=== PATIENT | male | born 1985 | race Caucasian/White ===

== ENCOUNTER → 2017-08-26 11:53 | Outpatient (CLI) | payer OTHER, SELFPAY ==
--- NOTE | 2017-08-27 16:35 | PM.PFT.1 ---
Pulmonary Function Test Referral & Results Date Patient Seen: 08/26/17 Requesting provider: Joey Barth Results: The spirometry demonstrates an FVC of 5.95 L which is 110% of predicted. The FEV1 was measured at 3.68 L which is 83% of predicted. The FEV1/FVC ratio was 62 which is 73% of predicted. Following the administration of bronchodilator there was a 26% improvement in FEV1 and a 96% improvement in FEF 25-75%. Lung volumes show an SVC of 5.82 L which is 119% of predicted. The diffusing capacity was measured at 67.65 which is 167 of predicted. The maximum voluntary ventilation was slightly reduced. Interpretation: This study demonstrates moderate obstructive lung disease with evidence of significant benefit following bronchodilator. Given lack of other findings this is consistent with a diagnosis of asthma.
== END ==
PROVIDERS: Visit Provider Family Medicine
DX: J45.909 Unspecified asthma, uncomplicated (principal)
CPT/HCPCS: 94010; 94060; 94726; 94729

== ENCOUNTER → 2019-12-13 12:45 | Outpatient (CLI) | payer OTHER, SELFPAY ==
--- NOTE | 2019-12-13 | DI.MRI.S_ITS ---
PROCEDURE: MR STROKE Pre- and post-contrast brain MRI, non-contrast brain MR angiogram, pre- and postcontrast neck MR angiogram INDICATIONS: Headache TECHNIQUE: Brain: Noncontrast axial T1 spin echo, axial T2 fast spin echo, sagittal and axial FLAIR, coronal T2 fast spin echo, axial gradient echo, axial diffusion and ADC through the brain. After the administration of contrast, axial 3D VIBE of the cranial vasculature and brain. Brain MRA: Non-contrast 3-D time of flight MR angiogram, with multiple jbxexpf-nlhlzstgm-glctmlffxm (MIP) reformats performed. Neck MRA: Axial and sagittal TruFISP through the neck. Coronal dynamic MR angiogram during administration of contrast in the arterial and venous phases, with 3-dimenstional ihjashw-wypsqzcab-gputtizpcc (MIP) reformats constructed from subtraction images. COMPARISON: [facility], , CT HEAD W/O CONTRAST, 01/10/2002, 15:03. FINDINGS: Image quality: Diagnostic, with note made of motion artifact. BRAIN: CSF spaces: Ventricles are normal in size and shape. Basal cisterns are patent. No extra-axial fluid collections. Brain: No intracranial bleeds or mass effects. Bermudez-white matter interface is normal. Diffusion weighted images show no acute ischemic insults. Brainstem appears normal. Normal intravascular flow voids are present. No abnormal intracranial enhancement. Skull and face: Calvarial marrow signal is normal. Orbits appear normal. Sinuses: Sinuses and mastoids are clear. BRAIN MR ANGIOGRAM: Anterior circulation: Intracranial internal carotid arteries are normal in size and enhancement. The flow within the paired anterior cerebral arteries is normal and symmetric. The flow within the middle cerebral arteries is normal and symmetric. The anterior communicating artery is not well seen. No stenoses, occlusions, or aneurysms. Posterior circulation: The visualized portions of the vertebral arteries demonstrate normal caliber, and join to form a normal appearing basilar artery. The flow within the posterior cerebral arteries is normal and symmetric. No stenoses, occlusions, or aneurysms. NECK MR ANGIOGRAM: Carotids: Great vessels demonstrate a conventional anatomy as they arise from the aortic arch. The origins of the common carotid arteries appear patent. The calibers and courses of both common carotid arteries are normal. The bifurcation regions appear normal bilaterally. The internal carotid arteries demonstrate normal course and caliber. Posterior circulation: The origins of the vertebral arteries appear patent. More superior portions of both vertebral arteries demonstrate normal course and caliber, and join to form a normal appearing basilar artery. Miscellaneous: Subclavian arteries appear patent. Pre-contrast images through the neck show no soft tissue abnormalities. IMPRESSION: BRAIN MRI: Unremarkable intracranial study, without an imaging explanation found for the patient's presenting history of headache. No masses or abnormal enhancement can be seen. No findings of acute or subacute infarction can be seen. BRAIN MR ANGIOGRAM: No significant intracranial arterial abnormality is seen. NECK MR ANGIOGRAM: Within the arteries of the neck, no hemodynamically significant stenosis can be seen. Dictated by: Rj Hanks M.D. on 12/13/2019 at 12:47 Approved by: Rj Hanks M.D. on 12/13/2019 at 12:50
== END ==
PROVIDERS: PCP Family Medicine; Referring Provider Family Medicine; Visit Provider Family Medicine
DX: R51 Headache (principal)
CPT/HCPCS: 70548; 70553; A9579

== ENCOUNTER → 2021-07-19 09:13 | Outpatient (CLI) | payer OTHER, SELFPAY ==
[2021-07-19 18:41] LABS: Add Manual Diff / Slide Review NO; Basophils Absolute Auto 0 /uL (0-100); Basophils Percent Auto 0.3 % (0-2); Eosinophils Absolute Auto 0 /uL (0-450); Eosinophils Percent Auto 0.9 % (2-4); Hematocrit 44.8 % (41-53); Hemoglobin 15.3 g/dL (13.5-17.5); Lymphocytes Absolute Auto 1500 /uL (1100-4500); Lymphocytes Percent Auto 30.8 % (25-40); Mean Corpuscular HGB Conc 34.2 % (30-36); Mean Corpuscular Hemoglobin 31.5 PG (26-34); Monocytes Absolute Auto 700 /uL (0-900); Monocytes Percent Auto 13.9 % (3-14); Neutrophils Absolute Auto 2700 /uL (1500-7000); Neutrophils Percent Auto 54.1 % (50-75); Platelet Count 240 X10^3/uL (150-400); Red Blood Cell Count 4.87 X10^6/uL (4.5-5.9)
[2021-07-19 18:50] LABS: Alanine Aminotransferase 37 IU/L (<50); Albumin 4.6 g/dL (3.5-5.0); Albumin Globulin Ratio 1.8 (1.0-2.8); Alkaline Phosphatase 62 U/L (38-126); Aspartate Aminotransferase 36 IU/L (17-59); BUN Creatinine Ratio 13.6 (6-22); Bilirubin Total 0.9 mg/dL (0.2-1.3); Blood Urea Nitrogen 14 mg/dL (9-20); Calcium 9.5 mg/dL (8.4-10.2); Carbon Dioxide 30 mmol/L (22-32); Chloride 106 mmol/L (98-107); Cholesterol 245 mg/dL (140-199); Estimated Glomerular Filt Rate > 60 mL/min (>60); Globulin 2.6 g/dL (1.7-4.1); Glucose 94 mg/dL (70-100); HDL Cholesterol 71 mg/dL (40-60); HEMOLYSIS < 15 (0-50); LDL Cholesterol Calculated 161 mg/dL (<100); Potassium 4.4 mmol/L (3.4-5.1); Sodium 140 mmol/L (137-145); Total Protein 7.2 g/dL (6.3-8.2); Triglycerides 64 mg/dL (35-150)
== END ==
PROVIDERS: PCP Family Medicine; Visit Provider Family Medicine
DX: B35.1 Tinea unguium (principal); J45.30 Mild persistent asthma, uncomplicated; Z00.00 Encounter for general adult medical examination without abnormal findings
CPT/HCPCS: 80053; 80061; 85025

== ENCOUNTER 2021-08-30 23:45 | Emergency (ER) | payer OTHER, SELFPAY ==
[2021-08-30 23:50] VITALS: BP 142/90; PULSE 60; RESP 17; TEMP 36.5; O2SAT 99; BMI 26.7
--- NOTE | 2021-08-31 00:40 | ED_ITS ---
HPI - Fall General Chief Complaint: Fall Stated Complaint: head/nose/chest injury/fall Time Seen by Provider: 08/30/21 23:50 Source: patient Mode of arrival: Ambulatory History of Present Illness HPI Narrative: Patient is a 36-year-old male. Is at his normal state [facility] when he was had a get together with some family members. He states he was carrying a plate of meat in as he was trying to go up some stairs his boot slipped off the stair and he fell forward. He fell onto the stairs hitting the left side of his chest. States that it knocked the wind out of him. He was dazed afterwards. He did not hit his head. There was no loss of consciousness. He was able to sit up but in the process of doing this he became lightheaded and fell forward this time hitting his nose and his forehead on the ground. [facility] there was a very short episode of having some shaking like movements. He was not confused afterwards. Since that time he has not had any nausea or vomiting. No headache. He has sustained an abrasion to his forehead. EMS was called to the scene. Patient reports no extremity injuries. No neck pain. Use advised to come to the emergency department for further evaluation. Related Data Previous Rx's Medication Instructions Recorded albuterol sulfate 90 mcg/actuation 2 puff INHALATION Q4-6H PRN #6.7 g 07/02/21 aerosol inhaler beclomethasone dipropionate 80 2 inh INHALATION DAILY #10.6 g 07/02/21 mcg/actuation HFA breath activated aerosol (Qvar RediHaler) montelukast 10 mg tablet 10 mg PO BEDTIME #30 tab 07/02/21 terbinafine HCl 250 mg tablet 250 mg PO DAILY #90 tab 07/02/21 Allergies Allergy/AdvReac Type Severity Reaction Status Date / Time No Known Allergies Allergy Uncoded 07/15/17 11:51 Review of Systems Review of Systems ROS Unobtainable: All systems reviewed & are unremarkable except as noted in HPI and below Patient History Medical History Depression Hyperlipidemia Mild persistent asthma, uncomplicated (~2012) Onychomycosis Family History (Updated 07/18/21 @ 20:40 by Dayana Mcneal) Grandfather Cancer Diabetes mellitus Social History Smoking Status: Former smoker Smoking Status: Former smoker alcohol intake frequency: 0-2 drinks per day Alcohol type: wine Substance Use Type: does not use Exam Initial Vital Signs Initial Vital Signs: Vital Signs Temperature 97.7 F 08/30/21 23:50 Pulse Rate 60 08/30/21 23:50 Respiratory Rate 17 08/30/21 23:50 Blood Pressure 142/90 H 08/30/21 23:50 Pulse Oximetry 99 08/30/21 23:50 Const General: cooperative and comfortable HENMT Head: abrasion (Over bridge of nose) Nose: nares normal, septum normal and No epistaxis Face and sinus: normal facial exam, face symmetric and no maxillary instability Mouth: oral mucosae normal Teeth and gingiva: dentition normal Eyes Pupils: PERRL EOM: EOM intact bilaterally Chest Chest: No crepitus and tenderness (Left-sided chest wall) Resp Effort & Inspection: normal respiratory effort Auscultation: clear to auscultation bilaterally Cardio Rate: regular rate Back/Spine/Pelvis Cervical Spine: No cervical spinal tenderness Thoracic/Lumbar Spine: No thoracic spinal tenderness and No lumbar spinal tenderness Skin Other: Abrasion over bridge no Neuro General: patient alert, patient awake, patient oriented x3 and moves all extremities Cognition: normal cognition Speech: speech normal Gait: normal gait Extrem General: capillary refill normal Psych Appearance: grossly normal and well kempt Scores GCS Paul coma scale eye opening: Spontaneous Paul coma scale verbal response: Orientated Paul coma scale motor response: Obey commands Alpine coma scale total score: 15 Nexus Score for C-Spine Focal Neurologic deficit present: No Midline spinal tenderness present: No Altered level of conciousness present: No Intoxication present: No Distracting Injury Present: No Nexus Criteria for C-spine: 0 Course Orders Ordered: ED Orders 08/31/21 EKG-12 Lead Routine Vital Signs Vital signs: Vital Signs - 8 hr 08/30/21 23:50 08/31/21 00:54 Temperature 97.7 F Pulse Rate 60 59 L Respiratory Rate 17 17 Blood Pressure 142/90 H 136/88 Pulse Oximetry 99 96 MDM - Fall ECG Data Attestation: I personally reviewed and interpreted this ECG as follows: Interpretation: Sinus rhythm Ventricular rate is 61 Normal axis Normal QRS Normal QTC No ST T wave changes MDM Narrative Medical decision making narrative: Ago. Cervical spine cleared by nexus criteria. Has an abrasion over the bridge of his nose but no tenderness over this area. No step-offs noted over the orbital rims. No extremity injuries noted. He does have left-sided chest wall tenderness where he fell forward hitting the step. Lungs are clear. He does not have pinpoint tenderness on the left side of his chest it is more of a generalized tenderness and I feel that a rib fracture is unlikely. No indication for head CT. No further workup required in the emergency department. Patient was given care instructions and return precautions. He expressed understanding and agreement. Discharge Plan Departure Patient Disposition: Home Clinical Impression: Abrasion of nose, Left-sided chest wall pain Instructions: DI for Rib Contusion Activity Restrictions/Additional Instructions: I would not be surprised if you are very sore tomorrow. If there is anything specific that comes up in the next couple days you should be re-evaluated. You can but topical antibiotic ointment over the abrasion on your nose. I would not be surprised if you develop a black eye. Contact your primary doctor for a follow-up. Return to the emergency department for any new or worsening symptoms. Prescriptions: No Action albuterol sulfate 90 mcg/actuation HFA aerosol inhaler 2 puff inhalation Q4-6H PRN (Reason: shortness of breath or wheezing) Qty: 6.7 5RF Qvar RediHaler 80 mcg/actuation HFA aerosol breath activated 2 inh inhalation DAILY Qty: 10.6 5RF montelukast 10 mg tablet 10 mg PO BEDTIME Qty: 30 2RF terbinafine HCl 250 mg tablet 250 mg PO DAILY Qty: 90 1RF Referrals: Jamel Perea, [Primary Care Provider] -
[2021-08-31 00:54] VITALS: BP 136/88; PULSE 59; RESP 17; O2SAT 96
== END 2021-08-31 00:56 | disposition home or self-care (01) ==
PROVIDERS: Emergency Provider Emergency Medicine; PCP Family Medicine
DX: S00.31XA Abrasion of nose, initial encounter (principal); R07.89 Other chest pain; W19.XXXA Unspecified fall, initial encounter
CPT/HCPCS: 93005; 99282; 99283

== ENCOUNTER → 2021-09-14 15:34 | Outpatient (CLI) | payer OTHER, SELFPAY ==
--- NOTE | 2021-09-14 15:35 | DI.RAD.S_ITS ---
PROCEDURE: XR CHEST 2V INDICATIONS: fall 2 weeks after fall TECHNIQUE: 2 views of the chest were acquired. COMPARISON: None. FINDINGS: Surgical changes and devices: None. Lungs and pleura: Lungs are clear. No pleural effusions or pneumothorax. Mediastinum: Mediastinal contours are normal. Heart size is normal. Bones and chest wall: No displaced rib fracture can be seen. No suspicious bony abnormalities. Soft tissues appear unremarkable. IMPRESSION: No displaced rib fracture or pneumothorax seen on these plain films. Dictated by: Rj Hanks M.D. on 09/14/2021 at 15:08 Approved by: Rj Hanks M.D. on 09/14/2021 at 15:09
== END ==
PROVIDERS: PCP Family Medicine; Referring Provider Physician Assistant; Visit Provider Physician Assistant
DX: R06.89 Other abnormalities of breathing (principal)
CPT/HCPCS: 71046